=== PATIENT | female | born 1935 | race Caucasian/White ===

== ENCOUNTER → 2025-06-21 12:39 | Outpatient (CLI) | payer MEDICARE, OTHER, SELFPAY | PROVIDERS: PCP Student in an Organized Health Care Education/Training Program; Visit Provider Urology | DX: R39.9 Unspecified symptoms and signs involving the genitourinary system (principal) | CPT/HCPCS: 87086 ==

== ENCOUNTER 2025-07-24 06:42 | Day surgery (SDC) | payer MEDICARE, OTHER, SELFPAY ==
[2025-07-24] VITALS (12 sets, daily range): BP systolic 73–154; BP diastolic 44–79; PULSE 62–85; RESP 18–20; TEMP 36.1–36.7; O2SAT 96–98
[2025-07-24] MEDS: ACETAMINOPHEN 325 MG TABLET 650 MG PO (07:20)
[2025-07-24] MEDS: LACTATED RINGERS 1,000 ML 21 ML IV (07:20)
--- NOTE | 2025-07-24 07:26 | SUR.OPER ---
Lithotomy on padded OR bed, head on pillow, arms secured on padded arm boards at <90 degrees abduction. Legs secured in padded yellow fins stirrups.
--- NOTE | 2025-07-24 07:33 | PM.HP.IH.1 ---
History of Present Illness History of Present Illness Date Patient Seen: 07/24/25 Time Patient Seen: 07:33 Chief complaint: TURBT Narrative: 89 y/o F returns to OR for a planned TURBT. Briefly, she admits to blood within her urine for the last few months. 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 Of note, she has significant Cardiac history, her Flour Distributor is Dr. Sarah and she takes Eliquis BID. Her cystoscopy in Jun was notable for at least a 4cm mass within her bladder. [facility] Medical History Chronic systolic heart failure History of cardioversion (03/20/14) Spinal stenosis of lumbar region Rectocele OAB (overactive bladder) PAD (peripheral artery disease) Arteriosclerosis of thoracic aorta HLD (hyperlipidemia) BP (high blood pressure) A-fib (2010) CHF (congestive heart failure) TIA (transient ischemic attack) (04/2025) Asthma Arthritis Surgical History History of knee replacement (~2010) History of cholecystectomy Family History Father Cancer Mother Congestive heart failure Social History marital status: number of children: 4 lives independently: Yes Smoking Status: Never smoker alcohol intake: current Type(s) of exercise: none Meds Home Medications and Allergies Home Medications ?Medication ?Instructions ?Recorded ?Confirmed ?Type acetaminophen 500 mg tablet 500 mg PO Q6H PRN pain 06/20/25 07/24/25 History (Tylenol Extra Strength) carvedilol 6.25 mg tablet 6.25 mg PO BID 06/20/25 07/24/25 History digoxin 125 mcg (0.125 mg) tablet 62.5 mcg PO DAILY 06/20/25 07/24/25 History furosemide 20 mg tablet (Lasix) 20 mg PO DAILY PRN edema 06/20/25 07/24/25 History multivitamin (Daily Multi-Vitamin 1 tab PO DAILY 06/20/25 07/24/25 History tablet) oxybutynin chloride 10 mg 10 mg PO DAILY 06/20/25 07/24/25 History tablet,extended release 24 hr apixaban 5 mg tablet (Eliquis) 5 mg PO BID 06/21/25 07/24/25 History atorvastatin 10 mg tablet (Lipitor) 10 mg PO DAILY 06/21/25 07/24/25 History Allergies Allergy/AdvReac Type Severity Reaction Status Date / Time No Known Drug Allergies Allergy Verified 07/24/25 07:03 Exam Vital Signs (past 8 hours): - 07/24/25 07:08 Temperature 98.0 F Pulse Rate 85 Respiratory Rate 20 Blood Pressure 120/68 Pulse Oximetry 98 Oxygen Delivery Method Room Air Oxygen Delivery Method Room Air Narrative Exam Narrative: GEN: Alert and oriented X3. No acute distress. Well-nourished. EYES: PERRLA, EOMI. HENT: Moist mucus membranes, no scleral icterus, normal neck ROM. RESP: Unlabored breathing, equal rise and fall of chest bilaterally, no cyanosis appreciated. CV: No peripheral edema, unremarkable heart rate. ABD: Soft, non-tender, non-distended, no palpable masses. EXT: No edema, clubbing or cyanosis. SKIN: No rashes or lesions. NEURO: No focal neurologic deficits, CN II-XII grossly intact. PSYCH: Cooperative, appropriate mood and affect. Assessment & Plan Assessment and plan (1) Bladder mass: Status: Acute Plan: 89 y/o F noted to have a 4cm mass within her bladder on a CT Abd/Pel during work-up of gross hematuria whose cystoscopy was notable for a large mass along her posterior bladder wall in the setting of large blood clots and poor visibility. Discussed the need for a TURBT in the setting of a significant Cardiac history and taking Eliquis BID, her Flour Distributor is Dr. Sarah at [facility]. Discussed risks of the procedure to include but not limited to pain, bleeding, infection, injury to urethra/prostate/bladder/ureteral orifice, need for a ureteral stent, prolonged catheterization, and possible open repair of ureteral and/or bladder injury. She has opted to move forward with a TURBT. Time-Based Coding :: [TOTAL MINUTES] spent with patient and on the chart (including review of chart, obtaining history, exam, reviewing outside data, placing orders, documenting exam and treatment plan, and counseling patient) on [DATE]. [employer] Software Developer Document charge(s): Yes Charge Codes Inpatient/observation care including admit and discharge same day: [id number]
--- NOTE | 2025-07-24 08:21 | SUR.OPER ---
Lithotomy on padded OR bed, head on pillow, arms secured on padded arm boards at <90 degrees abduction. Legs secured in padded yellow fins stirrups.
--- NOTE | 2025-07-24 09:21 | P.OP_ITS ---
Operative Date/Time/Diagnoses Date of procedure: 07/24/25 Time of procedure: 08:00 Pre-op diagnosis: Bladder mass Post-op diagnosis: same Procedure & Clinicians Procedure: Cystoscopy Transurethral resection of bladder tumor, >5 cm in greatest diameter Right retrograde ureteropyelogram Right ureteral stent placement Intraoperative interpretation of fluoroscopic images, total time < 1 hour Same procedure(s) as scheduled: Yes Indications: 89 y/o F noted to have a 4cm mass within her bladder on a CT Abd/Pel during work-up of gross hematuria whose cystoscopy was notable for a large mass along her posterior bladder wall in the setting of large blood clots and poor visibility. Discussed the need for a TURBT in the setting of a significant Cardiac history and taking Eliquis BID, her Professor Of Biological Sciences is Dr. Sarah at [facility]. Discussed risks of the procedure to include but not limited to pain, bleeding, infection, injury to urethra/prostate/bladder/ureteral orifice, need for a ureteral stent, prolonged catheterization, and possible open repair of ureteral and/or bladder injury. She has opted to move forward with a TURBT. Surgeon: Trent Ramirez Assisted?: No Anesthesia Type: General Operative Notes Findings: Large bladder mass, >5cm in greatest diameter, along posterior right bladder wall, encompassing right ureteral orifice Closure Type: not applicable Specimen(s): other (bladder tumor) Applied: catheter Estimated Blood Loss (mL): 50 Blood products transfused: none Procedure in detail: Patient was identified in the preoperative holding area and consent confirmed. She was then brought to the operating room where general anesthesia was induced. She was then placed in the low lithotomy position. She was then prepped and draped in the usual sterile fashion. A surgical timeout was conducted and all we re in agreement. Access to the bladder was obtained via a 21Fr cystoscope. Complete cystoscopy was then performed using a 30 and 70 degree lens. A 5cm papillary mass was noted immediately along the right posterior bladder wall and it was encompassing the right ureteral orifice. The left ureteral orifice was visualized and noted to be orthotopic in nature. No other concerning lesions were appreciated. The cystoscope was then removed and her urethral meatus was serially dilated using [place] sounds from 22Fr to 30Fr. The 26Fr resectoscope with visual obturator was then advanced through her urethra and into his bladder. The working element with Gyrus loop was then assembled and passed through the resectoscope and into the bladder. The mass was then resected to its base. The resection bed was then fulgurated. All bladder specimens were then manually evacuated from the bladder using the resectoscope. Hemostasis was evaluated and noted to be excellent at case end. The resectoscope was then removed and the cystoscope was advanced into her bladder. Using the 5Fr ureteral catheter over a 0.035 sensor tip ureteral guidewire, her right ureteral orifice was identified and cannulated. The ureteral guidewire and ureteral catheter were advanced into the right renal pelvis. The ureteral guidewire was removed and a right retrograde ureteropyelogram was performed which noted unremarkable right renal and ureteral architecture. The ureteral guidewire was readvanced through the ureteral catheter and into the right renal pelvis. The ureteral catheter was removed and a 6Fr multi-length JJ ureteral stent without strings was advanced over the guidewire and into the right renal pelvis. Upon removal of the ureteral guidewire, a good curl was noted within the right renal pelvis and bladder upon fluoroscopy. A 16Fr soto was then inserted into the bladder at case end, 10cc of sterile water was used for balloon insufflation. Anesthesia was reversed, she was extubated in the OR and transferred to the PACU in stable condition for recovery. Complications: none Post-operative Condition: stable Disposition: PACU Plan for aftercare: Discharge home from PACU. Will return to Urology clinic for soto catheter and right ureteral stent removal.
--- NOTE | 2025-07-24 09:23 | DI.RAD.S_ITS ---
PROCEDURE: XR ABDOMEN MIN 2V INDICATIONS: RIGHT STENT PLACEMENT TECHNIQUE: Three intraoperative fluoroscopic spot views of the abdomen were acquired. COMPARISON: None. FINDINGS: Intraoperative fluoroscopy for right nephroureteral stent placement. IMPRESSION: Right nephroureteral stent placement. Correlate with operative findings. Dictated by: Maegan Guerra M.D. on 07/24/2025 at 14:52 Approved by: Maegan Guerra M.D. on 07/24/2025 at 14:53
== END 2025-07-24 11:52 | disposition home or self-care (01) ==
PROVIDERS: PCP Student in an Organized Health Care Education/Training Program; Referring Provider Urology; Visit Provider Urology
PROC: 0TBB8ZZ Excision of Bladder, Via Natural or Artificial Opening Endoscopic (ICD-10-PCS; CPT 52235; principal; 2025-07-24 07:45)
DX: N32.89 Other specified disorders of bladder (principal)
CPT/HCPCS: 52235; 52005; 74019; 76000; C2617; J0330; J0689; J1100; J2405; J2704; J3010; J3490; J7120; Q9967